=== PATIENT | female | born 1985 | race Two or more races ===

== ENCOUNTER 2023-10-16 17:57 | Emergency (ER) | payer MEDICAID ==
[~2023-10-16] VITALS: Ht 162.6 cm; Wt 68.0 kg
[2023-10-16 18:06] VITALS: TEMP 98.3
[2023-10-16 19:50] VITALS: BP 136/87; PULSE 77; RESP 18; O2SAT 99
[2023-10-16] MEDS: HydrOXYzine HCL 10 MG TABLET PO ONE (20:38)
[2023-10-16] MEDS: IBUPROFEN 400 MG TABLET PO ONE (20:38)
[2023-10-16] MEDS ORDERED: HYDR-3831 PO (21:47)
== END 2023-10-16 22:29 | disposition home or self-care (01) ==
LOC: EMS 17:57
DX: F41.9 Anxiety disorder, unspecified (principal); R51.9 Headache, unspecified; R19.7 Diarrhea, unspecified
CPT/HCPCS: 99283